=== PATIENT | male | born 1970 | race Caucasian/White ===

== ENCOUNTER 2016-11-07 15:50 | Emergency (ER) | payer MEDICAID ==
[~2016-11-07] VITALS: Ht 182.9 cm; Wt 93.9 kg
[2016-11-07 15:50] VITALS: BP 134/101
[~2016-11-07 15:50] MED LIST: ABILIFY 5 MG TAB5 MG PO; ABILIFY15 MG PO; ALPRAZOLAM 0.50.5 MG PO; CARISOPRODOL 3350 MG PO; CELEXA 20 MG TA20 M1 PO; CELEXA 20 MG TA20 MG PO; CELEXA40 MG PO; CIPROFLOXACIN500 M1 PO; CLONAZEPAM; DIAZEPAM 10 MG10 M2; DIAZEPAM 2MG TAB2 MG PO; DILAUDID 2 MG TA2 MG PO; DOXYCYCLINE 10100 MG PO; ELAVIL; FENTANYL PA25 MCG/HR TP; FLOMAX0.4 MG PO; HYDROCODON-ACE1 EAC5 PO; IBUPROFEN 600600 M1 PO; IBUPROFEN 800800 MG PO; MEDROLDOSEPACK PO; NAPROSYN500 MG; NORCO 5-325 TA1 EACH PO; NORFLEX100 MG PO; OXYCONTIN10 MG PO; PERCOCET 10-321 EACH; PERCOCET 5-3251 EACH PO; PREDNISONE 20 M20 MG PO; PYRIDIUM200 MG PO; ROXICODONE5 MG PO; SUBOXONE 8 MG-1 EAC1; SUBOXONE 8 MG-1 EAC3 SL; TAMSULOSIN HCL0.4 MG PO; TRAMADOL 50 MG50 MG PO; ULTRAM 50MG TAB50 MG PO; VALIUM10 MG PO; VALIUM2 MG PO; XANAX 0.25 MG0.25 MG PO
[2016-11-07] MEDS ORDERED: NORCO 5-325 TA1 EACH PO (16:04)
== END 2016-11-07 16:56 | disposition home or self-care (01) ==
LOC: ER 15:50
DX: S39.012A Strain of muscle, fascia and tendon of lower back, initial encounter (principal); S09.90XA Unspecified injury of head, initial encounter; F17.210 Nicotine dependence, cigarettes, uncomplicated; V43.62XA Car passenger injured in collision with other type car in traffic accident, initial encounter; Y93.I9 Activity, other involving external motion; Y92.488 Other paved roadways as the place of occurrence of the external cause; Y99.9 Unspecified external cause status

== ENCOUNTER 2017-03-01 14:44 | Emergency (ER) | payer OTHER ==
[~2017-03-01] VITALS: Ht 180.3 cm; Wt 79.4 kg
[2017-03-01 14:45] VITALS: BP 112/75
[2017-03-01] MEDS ORDERED: FLEXERIL PO (15:08)
[2017-03-01] MEDS ORDERED: OXYCODONE HCL 55 MG PO (15:08)
== END 2017-03-01 15:22 | disposition home or self-care (01) ==
LOC: ER 14:44
DX: M54.5 Low back pain (principal); F17.210 Nicotine dependence, cigarettes, uncomplicated; Z98.890 Other specified postprocedural states